=== PATIENT | male | born 1965 | race Caucasian/White ===

== ENCOUNTER 2020-10-03 17:21 | Emergency (ER) | payer OTHER ==
[2020-10-03 21:07] LABS: HEMOGLOBIN 16.6 gm/dl (14.0-17.5); RED BLOOD COUNT 5.33 M/UL (4.20-5.50); WHITE BLOOD COUNT 11.8 K/UL (4.5-11.0)
[2020-10-03 21:24] LABS: BUN/CREATININE RATIO 13 (0-10)
[2020-10-03] MEDS ORDERED: LODINE CAP 300300 MG PO (22:23)
[2020-10-03] MEDS ORDERED: OMNICEF 300 MG300 MG PO (22:23)
== END 2020-10-03 22:41 | disposition home or self-care (01) ==
LOC: ER1 17:21
PROVIDERS: Physician Assistant
DX: E11.65 Type 2 diabetes mellitus with hyperglycemia (principal); F41.9 Anxiety disorder, unspecified; H66.92 Otitis media, unspecified, left ear; F17.210 Nicotine dependence, cigarettes, uncomplicated; Z88.0 Allergy status to penicillin
CPT/HCPCS: 36415; 80053; 80307; 81001; 82550; 82553; 82962; 83735; 83874; 84484; 85025; 87086; 93005; 96374; 96375; 99285; G0480

== ENCOUNTER 2021-02-06 10:07 | Emergency (ER) | payer OTHER ==
[~2021-02-06 10:07] MED LIST: LODINE CAP 300300 MG PO; OMNICEF 300 MG300 MG PO
[2021-02-06] MEDS ORDERED: IBU800 MG PO (12:37)
[2021-02-06] MEDS ORDERED: LIDOCAINE HCL10 ML MM (12:37)
[2021-02-06] MEDS ORDERED: BACTRIM DS TAB1 EACH PO (12:40)
== END 2021-02-06 13:09 | disposition home or self-care (01) ==
LOC: ER1 10:07
DX: L03.312 Cellulitis of back [any part except buttock and flank] (principal); I10 Essential (primary) hypertension; E78.5 Hyperlipidemia, unspecified; E11.9 Type 2 diabetes mellitus without complications; Z79.84 Long term (current) use of oral hypoglycemic drugs; Z79.899 Other long term (current) drug therapy
CPT/HCPCS: 96372; 99281; J1885